=== PATIENT | male | born 1980 | race Caucasian/White ===

== ENCOUNTER → 2023-09-25 09:51 | Outpatient (REF) | payer OTHER, SELFPAY | LOC: RAD 09:51 | PROVIDERS: ATTENDING PHYSICIAN Internal Medicine Hematology & Oncology | DX: R80.1 Persistent proteinuria, unspecified (principal); D47.2 Monoclonal gammopathy | CPT/HCPCS: 76700 ==

== ENCOUNTER → 2024-01-05 09:59 | Outpatient (REF) | payer OTHER, SELFPAY | LOC: HWRAD 09:59 | PROVIDERS: ATTENDING PHYSICIAN Internal Medicine | DX: R79.89 Other specified abnormal findings of blood chemistry (principal) | CPT/HCPCS: 76700 ==

== ENCOUNTER 2024-06-26 21:14 | Emergency (ER) | payer OTHER, SELFPAY ==
[2024-06-26 21:17] VITALS: BP 146/82
--- NOTE | 2024-06-26 22:00 | ED.GENMED ---
History of Present Illness
General
Chief Complaint: Oral/Mouth Problem
Time Seen by Provider: 06/26/24 22:00
History of Present Illness
History of Present Illness:
TIME OF INITIAL ENCOUNTER: 10 PM
HPI: Patient has chronic dry mouth over the past year. More recently he noted swelling inside of both cheeks. He was concerned of parotid swelling. He was also concerned because his now ex-girlfriend and is very concerned about the possibility of
HIV. Had been cheating on him. He was recently treated for a fungal infection with an oral liquid and then fluconazole. No fevers. Denies any penile discharge.
EXAM:
GENERAL: Well appearing in no distress
HEENT: Some vague soft tissue prominence of the buccal mucosa but no palpable abscess nor stone, questionable/borderline parotid swelling bilaterally
NEUROLOGIC: Excellent strength all extremities, no obvious coordination deficits
PSYCHIATRIC: Appropriate mental status, normal insight and judgement
EXTREMITIES: Nontender, no edema, moves all extremities equally
SKIN: No rash, no lesions
NUMBER AND COMPLEXITY OF PROBLEMS ADDRESSED AT THE ENCOUNTER
� Chronic conditions affecting care: Anxiety, history of substance abuse, Tourette's
� Acute Exacerbation and/or Progression of Chronic Illness: This is an acute problem
� Differential Diagnosis includes: Viral syndrome, parotitis, mumps, HIV very unlikely, diabetes
AMOUNT AND/OR COMPLEXITY OF DATA TO BE REVIEWED AND ANALYZED
� I performed an independent evaluation of and my interpretation is:
EKG:
CT:
X-rays:
Laboratory Studies: CBC unremarkable, chemistries unremarkable, HIV negative, mumps pending
Other:
� Review of other/old records: I reviewed records, the patient had a colonoscopy 2019, the patient had an IR ultrasound-guided right thigh lymph node biopsy in 2019
� Clinical information was obtained by an independent historian:
� Prescriptions/Medications Considered but not given: Considered steroids however given the recent reported fungal infection, he wants to hold off on steroids.
� Further testing considered but not performed: Considered imaging however the patient has no palpable abnormality on physical exam including no palpable stone
RISK OF COMPLICATIONS AND/OR MORBIDITY OR MORTALITY OF PATIENT MANAGEMENT
� Social determinants of health affecting care:
� Discussion with other providers:
� Escalation of care including admission/observation vs risk of discharge considered: The patient strongly wants to have HIV testing. Although he has concerns of swelling inside of his mouth, his physical examination is
relatively unremarkable. There are no palpable stones. No clear indication for imaging at this time but recommend ENT follow-up. Will try clindamycin.
ANY OTHER UPDATES:
Although there is no clinical concern for dehydration, the patient was concern for dehydration and requested IV fluids. The patient was given a liter of IV fluids. Given the possibility of salivary gland stone, I recommended that she try sour
candies.
Past History
Past History
ED Past Medical History: Psychiatric (Anxiety) and Other (Ulcerative colitis, Turrets)
ED Past Surgical History: Orthopedic and Other (nose)
Social History
Tobacco: Non-smoker
Alcohol: None
Drug: Former user
Personal: Single
Living: with family
Phy Exam
Physical Exam
Physical Exam:
See HPI
Course
Orders/Labs/Results
Orders:
Orders
06/26/24 22:17
Clindamycin HCl [Cleocin] 300 mg PO NOW STA
06/26/24 22:28
Complete Blood Count/With Diff Urgent
Comprehensive Metabolic Panel Urgent
HIV Combo Urgent
Mumps Virus IgM [S] Urgent
06/26/24 22:31
0.9% Sodium Chloride 1000 ml [Nss] 1,000 ml IV BOLUS
Abnormal Lab Results
06/26/24
22:28
RBC 4.35 L 10^6/uL
(4.70-6.10)
Hct 38.3 L %
(39.0-52.0)
ALT 56 H U/L
(0-50)
06/26/24 22:28
06/26/24 22:28
Vital Signs
Initial and Last Documented VS:
Initial Vital Signs
Temp Pulse Resp BP Pulse Ox
37.2 C 67 14 146/82 98
06/26/24 21:17 06/26/24 21:17 06/26/24 21:17 06/26/24 21:17 06/26/24 21:17
Last Documented Vital Signs
Temp Pulse Resp BP Pulse Ox
37.2 C 58 18 128/87 99
06/26/24 21:17 06/27/24 00:10 06/27/24 00:10 06/27/24 00:10 06/27/24 00:10
*Critical Care Note
Total Time (30-74mins, 75-104mins- exclusive of procedures): Not Applicable
ED Attending Note
-
Portions of this chart may have been created with voice recognition software.� Occasional wrong word or��sound alike� substitutions may have occurred due to the inherent limitations of voice recognition software.
Discharge Plan
Departure
Patient Disposition: Home (Routine Discharge)
Date of Disposition: 06/26/24
Time of Disposition: 23:58
Patient with high blood pressure during this ER visit?: Yes
Discharge Problem:
Mouth swelling
Instructions: Parotitis, BLOOD PRESSURE
Prescriptions:
New
clindamycin HCl 300 mg capsule
300 mg PO TID Qty: 15 0RF
No Action
methadone [Methadose] 100 MG/10 ML concentrate
46 mg PO DAILY
Vitamin D
5,000 units PO DAILY
Referrals:
Odilon Mims MD [Family Provider] -
Cece Arnold MD [Active] - Follow up in 2-3 days
Activity Restrictions/Additional Instructions:
The cause of your symptoms is unclear. Your white blood cell count is normal. Your chemistry levels are normal. HIV test negative. Mumps test is pending and you will only be notified in a few days if it is abnormal. I am sending a prescription
for clindamycin to your pharmacy in case this could be a bacterial infection. In case there could be a blockage of the salivary gland duct, I recommend that you try eating sour candies. I also recommend that you follow-up with an ENT such as
[facility].
Interventions
Interventions:
*Risk Screen - Suicide Last Done: 06/26/24 21:17
*General Assessment Last Done: 06/26/24 21:17
*Neglect/Abuse Screening Last Done: 06/26/24 21:17
*ED- Fall Risk Assessment Last Done: 06/26/24 22:40
*ED COVID-19 Vaccine History Last Done: 06/26/24 22:40
*Nursing Disposition Last Done: 06/27/24 00:11
Discharge Date and Time
Discharge Date/Time: 06/27/24 00:12
Print Language: [id number]
[2024-06-26] MEDS: CLEOCIN 300 MG PO (22:33)
[2024-06-26] MEDS: NSS 1000 IV (22:33)
[2024-06-26 22:48] LABS: % Basophils 0.6 % (0-2); % Eosinophils 3.2 % (0-6); % Immature Granulocytes 0.2 % (0-0.5); % Lymphocytes 27.5 % (20.5-51.1); % Monocytes 6.7 % (1.7-9.3); % Neutrophils 61.8 % (42.2-75.2); Absolute Basophils 0.1 10^3/uL (0-0.2); Absolute Eosinophils 0.3 10^3/uL (0-0.7); Absolute Lymphocytes 2.2 10^3/uL (1.2-3.4); Absolute Monocytes 0.5 10^3/uL (0.1-0.6); Hematocrit 38.3 % (39.0-52.0); Hemoglobin 13.1 g/dL (13.0-18.0); Mean Corp Hgb Conc. 34.2 g/dL (33.0-37.0); Mean Corpuscular Hgb 30.1 pg (27.0-31.0); Nucleated Red Blood Cells % 0 % (-); Platelet Count 287 10^3/uL (130-400); Red Blood Cell Count 4.35 10^6/uL (4.70-6.10); Red Cell Dist. Width 12.6 % (11.5-14.5)
[2024-06-26 23:34] LABS: ALT (SGPT) 56 U/L (0-50); AST (SGOT) 48 U/L (17-59); Alkaline Phosphatase 41 U/L (38-126); Blood Urea Nitrogen 18 mg/dl (9-20); Calcium 9.9 mg/dl (8.4-10.2); Carbon Dioxide 28 mmol/L (22-30); Chloride 106 mmol/L (98-107); Glucose 84 mg/dl (70-99); Potassium 4.6 mmol/L (3.5-5.1); Sodium 141 mmol/L (135-145); Total Bilirubin 0.3 mg/dl (0.2-1.3); Total Protein 6.3 g/dl (6.3-8.2); eGFR > 60.00
[2024-06-27 00:06] LABS: HIV Combo Negative (Negative)
[2024-06-27 00:10] VITALS: BP 128/87
[2024-06-29 01:15] LABS: Mumps Virus IgM 0.09 IV (<=0.79)
== END 2024-06-27 00:12 | disposition home or self-care (01) ==
LOC: EMR 21:14
PROVIDERS: EMERGENCY PHYSICIAN Emergency Medicine; FAMILY PHYSICIAN Internal Medicine
DX: R22.0 Localized swelling, mass and lump, head (principal); R68.2 Dry mouth, unspecified
CPT/HCPCS: 99283; 96360; 80053; 85025; 86735; 87389

== ENCOUNTER → 2024-09-08 17:53 | Outpatient (REF) | payer OTHER, SELFPAY | LOC: MRI 17:53 | PROVIDERS: ATTENDING PHYSICIAN Otolaryngology; FAMILY PHYSICIAN Internal Medicine | DX: D37.030 Neoplasm of uncertain behavior of the parotid salivary glands (principal) | CPT/HCPCS: 70540 ==

== ENCOUNTER 2024-12-29 06:08 | Day surgery (SDC) | payer OTHER, SELFPAY ==
[2024-12-29 13:33] VITALS: BMI 37.7
[2024-12-29 13:34] VITALS: BMI 37.7
[2024-12-29 13:36] VITALS: BP 143/95
== END 2024-12-29 15:36 | disposition home or self-care (01) ==
LOC: SDS 06:08
PROVIDERS: ATTENDING PHYSICIAN Surgery; FAMILY PHYSICIAN Internal Medicine
DX: R19.4 Change in bowel habit (principal); K64.0 First degree hemorrhoids
CPT/HCPCS: 45341